=== PATIENT | male | born 1990 | race Caucasian/White ===

== ENCOUNTER 2017-04-19 22:25 | Emergency (ER) | payer OTHER ==
[~2017-04-19] VITALS: Ht 175.3 cm; Wt 90.7 kg
[2017-04-19 22:25] VITALS: BP 135/72
[2017-04-19] MEDS ORDERED: PENI500T PO (22:50)
[2017-04-19] MEDS ORDERED: HYDR-2758 PO (22:50)
--- NOTE | 2017-04-19 22:50 | PHYS DOC ---
Past History Past Medical History: No Pertinent History Past Surgical History: No Surgical History Alcohol Use: None Drug Use: None Adult General Chief Complaint Chief Complaint: DENTAL PROBLEM HPI HPI 26-year-old male presenting to the emergency department with left dental pain. His pain is moderate to severe intermittent. He reports having dental work on and the pain has not improved. It is a throbbing pain that is nonradiating and without alleviating factors. He is taking ibuprofen at home. He denies drooling stridor chest pain or difficulty swallowing. Review of systems is negative for fevers chills nausea vomiting chest pain shortness of breath. All other review of systems is negative unless otherwise noted in history of present illness. ED course: 26-year-old gentleman presenting with dental pain. Afebrile. Normal vital signs. Pertinent physical exam findings shows recent dental work on the left lower molars. Otherwise nontoxic without stridor. Unremarkable. I provided the patient penicillin and hydrocodone to follow-up with his dentist at the end of the holiday weekend. The patient was then discharged home in stable condition to follow up with their primary care physician over the next 2-3 days. They were to return if their symptoms worsened or if they were concerned for any reason. [id number] discharge instructions and return precautions were given. Patient's questions were answered to their satisfaction. Patient is comfortable plan. Review of Systems Review of Systems SEE ABOVE. Allergies Allergies Allergies Coded Allergies Type Severity Reaction Last Updated Verified No Known Drug Allergies 04/19/17 No Physical Exam Physical Exam Constitutional: Well developed, well nourished, no acute distress, non-toxic appearance. [] HENT: Normocephalic, atraumatic, bilateral external ears normal, oropharynx moist, no oral exudates, nose normal. [] Eyes: PERRLA, EOMI, conjunctiva normal, no discharge. [] Neck: Normal range of motion, no tenderness, supple, no stridor. [] Cardiovascular:Heart rate regular rhythm, no murmur [] Lungs & Thorax: Bilateral breath sounds clear to auscultation [] Abdomen: Bowel sounds normal, soft, no tenderness, no masses, no pulsatile masses. [] Skin: Warm, dry, no erythema, no rash. [] Back: No tenderness, no CVA tenderness. [] Extremities: No tenderness, no cyanosis, no clubbing, ROM intact, no edema. [] Neurologic: Alert and oriented X 3, normal motor function, normal sensory function, no focal deficits noted. [] Psychologic: Affect normal, judgement normal, mood normal. [] EKG EKG [] Radiology/Procedures Radiology/Procedures [] Course & Med Decision Making Course & Med Decision Making Pertinent Labs and Imaging studies reviewed. (See chart for details) [] Dragon Disclaimer Dragon Disclaimer This chart was dictated in whole or in part using Voice Recognition software in a busy, high-work load, and often noisy Emergency Department environment. It may contain unintended and wholly unrecognized errors or omissions. Departure Departure: Impression: Primary Impression: Dentalgia Disposition: HOME, SELF-CARE Condition: STABLE Referrals: ADOLFO BRADLEY (PCP) Patient Instructions: Dental Pain Additional Instructions: Thank you for allowing us to participate in your care today. Followup with your dentist in 3 days. Call your Primary Doctor tomorrow and inform them of your visit today. If you do not have a primary care provider you can ask for a list of our primary care providers. Return to the emergency department you have any new or concerning findings. This should be evaluated by the primary care physician and any necessary consulting services for continued management within a few days after discharge. Return to emergency room if you have any new or concerning symptoms including but not limited to fever, chills, nausea, vomiting, intractable pain, any new rashes, chest pain, shortness of air, uncontrolled bleeding, difficulty breathing, and/or vision loss. Scripts Penicillin V Potassium (PENICILLIN V POTASSIUM) 500 Mg Tablet 1 TAB PO BID, #10 TAB Prov: CESAR HUSSEIN MD 04/19/17 Hydrocodone Bit/Acetaminophen (HYDROCODONE-APAP 5-325 ) 1 Each Tablet 2 TAB PO PRN Q6HRS Y for PAIN, #15 TAB 0 Refills Prov: CESAR HUSSEIN MD 04/19/17 CESAR HUSSEIN MD Apr 19, 2017 22:50
== END 2017-04-19 23:01 | disposition home or self-care (01) ==
LOC: ER 22:25
DX: K08.89 Other specified disorders of teeth and supporting structures (principal)
CPT/HCPCS: 99283

== ENCOUNTER 2017-05-10 13:40 | Emergency (ER) | payer OTHER ==
[~2017-05-10] VITALS: Ht 175.3 cm; Wt 95.3 kg
[~2017-05-10 13:40] MED LIST: HYDR-2758 PO; PENI500T PO
[2017-05-10 13:48] VITALS: BP 133/70
[2017-05-10] MEDS ORDERED: HYDR-971 PO (14:12)
--- NOTE | 2017-05-10 14:12 | PHYS DOC ---
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 Patient has been having problems with the left lower molar. He has [place]. He's had a couple dental procedures, and is scheduled for root canal sometime this week. He was actually seen here on April 19 with pain after a dental procedure and was given a prescription for hydrocodone No. 15. He says he has taken them all. This morning, he was playing with his dog and the dog jumped up and struck the patient's jaw with the dog's head, causing a fracture of the tooth that has been giving him problems. He is now having more tooth pain and he needs more pain medication. 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 Review of Systems Review of Systems Constitutional: Denies fever or chills [] Allergies Allergies Allergies Coded Allergies Type Severity Reaction Last Updated Verified No Known Drug Allergies 04/19/17 No Physical Exam Physical Exam Constitutional: Well developed, well nourished, no acute distress, non-toxic appearance. Alert, mentating normally, voice normal, handling his secretions normally. HENT: Normocephalic, atraumatic, bilateral external ears normal, oropharynx moist, no oral exudates, nose normal. Left lower second molar has evidence of a temporary filling, the posterior aspect of the molar is fractured off. There is no gum abnormality noted. Eyes: conjunctiva normal, no discharge. [] Neck: Normal range of motion, no stridor. [] Skin: Warm, dry, no erythema, no rash. [] Extremities: No tenderness, no cyanosis, no clubbing, ROM intact, no edema. [] Neurologic: Alert and oriented X 3, normal motor function, normal sensory function, no focal deficits noted. [] Current Patient Data Vital Signs Vital Signs Date Time Temp Pulse Resp B/P (MAP) Pulse Ox O2 Delivery O2 Flow Rate FiO2 05/10/17 13:48 98.3 83 14 98 Room Air EKG EKG [] Radiology/Procedures Radiology/Procedures [] Course & Med Decision Making Course & Med Decision Making Pertinent Labs and Imaging studies reviewed. 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 [] Dragon Disclaimer Dragon Disclaimer This chart was dictated in whole or in part using Voice Recognition software in a busy, high-work load, and often noisy Emergency Department environment. It may contain unintended and wholly unrecognized errors or omissions. Departure Departure: Impression: Primary Impression: Fractured tooth due to trauma with complication Disposition: HOME, SELF-CARE Condition: STABLE Referrals: ADOLFO BRADLEY (PCP) Patient Instructions: Dental Pain, [id number] Additional Instructions: Avoid any hot, cold, or sweet foods. Avoid chewing on the left side of your mouth. Go to dental office hours on Friday to see what they can do about your tooth. Hydrocodone as prescribed for pain, be aware this is an opiate, do not take while driving, it may be addicting, sedating, and constipating. Scripts Hydrocodone Bit/Acetaminophen (NORCO 5-325 TABLET) 1 Each Tablet 1-2 TAB PO Q4-6HRS for dental pain, #15 TAB Prov: ANDRE GOMES MD 05/10/17 ANDRE GOMES MD May 10, 2017 14:12
== END 2017-05-10 14:22 | disposition home or self-care (01) ==
LOC: ER 13:40
DX: S02.5XXA Fracture of tooth (traumatic), initial encounter for closed fracture (principal); W54.1XXA Struck by dog, initial encounter; Y93.89 Activity, other specified; Y99.8 Other external cause status; Y92.89 Other specified places as the place of occurrence of the external cause
CPT/HCPCS: 99283